=== PATIENT | female | born 1955 | race Caucasian/White ===

== ENCOUNTER → 2022-03-03 10:48 | Outpatient (CLI) | payer MEDICARE, SELFPAY ==
[2022-03-03 12:07] LABS: Free T3, Triiodothyronine Free 5.42 pg/mL (2.77-5.27); T4 Total Thyroxine 8.95 ug/dL (5.5-11.0)
[2022-03-03 12:15] LABS: Follicle Stimulating Hormone 14.8 mIU/mL
[2022-03-03 12:30] LABS: Estradiol, Total 56.3 pg/mL
[2022-03-03 12:45] LABS: Thyroid Stimulating Hormone < 0.015 uIU/mL (0.47-4.68)
[2022-03-03 18:26] LABS: Testosterone 250 ng/dL (5.71-77.0)
[2022-03-04 06:25] LABS: Thyroid Peroxidase Antibodies 11 IU/mL (0-34)
== END ==
DX: N95.1 Menopausal and female climacteric states (principal); E03.4 Atrophy of thyroid (acquired); E34.9 Endocrine disorder, unspecified
CPT/HCPCS: 36415; 82670; 83001; 84403; 84436; 84443; 84481; 86376

== ENCOUNTER → 2022-08-01 10:26 | Outpatient (CLI) | payer MEDICARE, SELFPAY | PROVIDERS: Visit Provider Student in an Organized Health Care Education/Training Program | DX: N39.0 Urinary tract infection, site not specified (principal) | CPT/HCPCS: 87077; 87086; 87186 ==

== ENCOUNTER → 2024-05-16 11:00 | Outpatient (CLI) | payer MEDICARE, SELFPAY ==
[2024-05-16 11:50] LABS: Influenza A - CEPHEID Flu A NEGATIVE (NEGATIVE); Influenza B - CEPHEID Flu B NEGATIVE (NEGATIVE); Respiratory Syncytial Virus Negative (Negative)
[2024-05-16 11:51] LABS: COVID-19 CEPHEID 4-PLEX PCR Negative (Negative)
== END ==
PROVIDERS: Visit Provider Physician Assistant
DX: R05.1 Acute cough (principal)
CPT/HCPCS: 0241U